=== PATIENT | male | born 1985 | race Caucasian/White ===

== ENCOUNTER 2017-06-18 20:20 | Emergency (ER) | payer BC, OTHER ==
[~2017-06-18] VITALS: Ht 170.2 cm; Wt 93.0 kg
[~2017-06-18 20:20] MED LIST: CLARITIN-D 12 H1 TA1 PO; NAPROSYN500 MG PO; ZPAK PO; [UNRECOGNIZED DRUG - OTHER]
[2017-06-18] MEDS ORDERED: IBUPROFEN 600600 M1 PO (21:18)
[2017-06-18] MEDS ORDERED: DOXYCYCLINE 10100 MG PO (21:18)
[2017-06-18] MEDS ORDERED: NORCO 5-325 TA1 EACH PO (21:18)
[2017-06-18 21:39] VITALS: BP 123/76
== END 2017-06-18 21:40 | disposition home or self-care (01) ==
LOC: ER 20:20
DX: S99.821A Other specified injuries of right foot, initial encounter (principal); X58.XXXA Exposure to other specified factors, initial encounter; Y93.89 Activity, other specified; Y92.89 Other specified places as the place of occurrence of the external cause; Y99.8 Other external cause status